=== PATIENT | male | born 1985 | race Caucasian/White ===

== ENCOUNTER → 2020-08-14 | Outpatient (CLI) | payer BC ==
[~2020-08-14] MED LIST: DOCU-109 PO; HYDR-2761 PO; IBUP-1007 PO; METH-38 PO
[2020-08-14 14:12] LABS: BASO % 0 % (0-3); EOS # 0.1 x10^3/uL (0.0-0.7); EOS % 1 % (0-3); HEMATOCRIT 44.4 % (39.0-53.0); HEMOGLOBIN 15.3 g/dL (13.0-17.5); LYMPH % 17 % (24-48); MEAN CORPUSCULAR HEMOGLOBIN 32 pg (25-35); MEAN CORPUSCULAR HGB CONC 35 g/dL (31-37); MEAN CORPUSCULAR VOLUME 93 fL (79-100); MONO # 0.6 x10^3/uL (0.0-1.1); MONO % 10 % (0-9); NEUT # 4.1 x10^3/uL (1.8-7.7); NEUT % 72 % (31-73); PLATELET COUNT 117 x10^3/uL (140-400); RED CELL DISTRIBUTION WIDTH 12.7 % (11.5-14.5); WHITE BLOOD COUNT 5.7 x10^3/uL (4.0-11.0)
[2020-08-14 14:33] LABS: ALBUMIN 4.1 g/dL (3.4-5.0); ALBUMIN/GLOBULIN RATIO 1.2 (1.0-1.7); CALCIUM 8.7 mg/dL (8.5-10.1); CREATININE 1.4 mg/dL (0.7-1.3); GFR 58.4; TOTAL BILIRUBIN 0.9 mg/dL (0.2-1.0); TOTAL PROTEIN 7.4 g/dL (6.4-8.2)
== END ==
LOC: SURGPAT 13:15
PROVIDERS: ATTEND Neurological Surgery
DX: Z01.812 Encounter for preprocedural laboratory examination (principal); Z20.822 Contact with and (suspected) exposure to COVID-19; M51.17 Intervertebral disc disorders with radiculopathy, lumbosacral region
CPT/HCPCS: 80053; 85025; 87641; U0003

== ENCOUNTER 2020-08-20 09:14 | Day surgery (SDC) | payer BC ==
[~2020-08-20] VITALS: Ht 180.3 cm; Wt 97.5 kg
--- NOTE | 2020-08-20 06:55 | PREOP HP ---
DATE OF SERVICE: 08/20/2020 HISTORY OF PRESENT ILLNESS: The patient is a pleasant 35-year-old man who is having difficulty with back pain and severe pain in his right buttock, posterior thigh and leg. He also notes a pins and needle sensation in his right foot. He has had difficulties with his lower back for about 3 or 4 years following a basketball injury and has had intermittent episodes of pain since then. Currently, he rates his pain 6/10, but it can reach 8-9/10. He has difficulty sleeping because of pain. He has missed work because of pain. The pain is constant. Sitting, standing or walking increases his pain. He must change positions frequently. He is taking gabapentin and ibuprofen. He had an epidural steroid injection on 07/28 with no relief. He has had physical therapy recently with no relief. He also has seen a chiropractor, which did not give him significant relief. CURRENT MEDICATIONS: Gabapentin, ibuprofen, nabumetone. PAST MEDICAL HISTORY: Denies previous medical history. PAST SURGICAL HISTORY: Tonsillectomy, right elbow scope, left elbow scope.. FAMILY HISTORY: Hypertension, spine problems. SOCIAL HISTORY: Employed as an investigative specialist. . Uses chewing tobacco for 10 years. Drinks alcohol 1-2 times per week. ALLERGIES: No known drug allergies. REVIEW OF SYSTEMS: A 12-point review of systems was performed and is noncontributory except that mentioned above. PHYSICAL EXAMINATION: GENERAL: Alert, pleasant, in no acute distress. HEAD: Normocephalic, atraumatic. SKIN: Warm and dry. MUSCULOSKELETAL: There is [id number]-[id number] tenderness of the lower lumbar spine with palpation. Lumbar spine range of motion is restricted. Lumbar paraspinal muscle bulk is normal. Normal range of motion of the lower extremities. EXTREMITIES: No clubbing, cyanosis or edema. NEUROLOGIC: Alert and oriented x 3. Strength is 5/5 in the bilateral lower extremities, sensory was intact to light touch in the lower extremities bilaterally, reflexes were present and symmetric in the lower extremities except for an absent right ankle jerk, straight leg raising is markedly positive on the right, crossed straight leg raising markedly positive on the left, antalgic gait. IMAGING: I reviewed a lumbar MRI scan from 08/05/2020. On that study, the principal abnormality is a large right paracentral disc extrusion at L5-S1, which extends into the right lateral recess with marked compression of the right S1 nerve root. The disc has enlarged when compared to previous MRI scan from 12/18/2019. ASSESSMENT AND PLAN: The patient has a severe right lumbar radiculopathy. He has failed to improve with epidural steroid injections as well as physical therapy. The disc is enlarged on sequential MRI scan. My feeling is that he should undergo lumbar microsurgery including a microdiskectomy at L5-S1. I spoke with him about the surgery and the risk. We also discussed the expected postoperative course. He understands. He would like to go ahead. EMI FELIX MD DR: UZAIR/siddharth JOB#: [id number] / [id number] JUANITA
[~2020-08-20 09:14] MED LIST changes: +BACITRACIN 50,000 UNIT in IV NORMAL SALINE 1000ML BAG 1,000 ML IRR ONE; +BUPIVACAINE-EPI 0.5%-1:200000 MPF 30 ML VIAL. ONE; +DEXAMETHASONE SOD PHOS 4 MG/ML VIAL ONE; -DOCU-109 PO; +GELATIN SPONGE SIZE 100. ONE; +GLYCOPYRROLATE 1 MG/5 ML VIAL. ONE; -HYDR-2761 PO; +HYDROmorphone 2 MG/ML VIAL IVP PRN; +IV RINGERS,LACTATED 1000ML 1,000 ML IV SCH; +KETOROLAC 60 MG/2 ML VIAL. ONE; +LIDOCAINE 2% PF 5 ML VIAL. ONE; -METH-38 PO; +MIDAZOLAM HCL/PF 2 MG/2 ML VIAL. ONE; +MORPHINE SULFATE 2 MG/ML VIAL. IVP PRN; +NEOSTIGMINE METHYLSULFATE 5 MG/5 ML SYRINGE. ONE; +ONDANSETRON PF 4 MG/2 ML VIAL. ONE; +PROCHLORPERAZINE 10 MG/2 ML VIAL. IVP PRN; +PROPOFOL 10 MG/ML (20ML) VIAL. IV ONE; +REMIFENTANIL 2 MG VIAL. IV ONE; +ROCURONIUM 50 MG/5 ML VIAL. ONE; +SCOPOLAMINE 1.5MG PATCH. TD ONE; +THROMBIN TOPICAL 20,000 UNIT SPRAY.SYRN KIT TP ONE; +fentaNYL PF VIAL 100 MCG/2 ML VIAL IVP PRN; +fentaNYL PF VIAL 100 MCG/2 ML VIAL ONE
[2020-08-20] MEDS ORDERED: SCOPOLAMINE 1.5MG PATCH. TD SCH (09:15)
[2020-08-20] MEDS ORDERED: PROPOFOL 100 ML IV ONE (09:15)
[2020-08-20] MEDS ORDERED: PHENYLEPHRINE 10 MG/ML VIAL. ONE (09:25)
[2020-08-20] MEDS ORDERED: diphenhydrAMINE 50 MG/ML VIAL ONE (11:41)
[2020-08-20] MEDS ORDERED: METH-38 PO (11:46)
[2020-08-20] MEDS ORDERED: HYDR-2761 PO (11:46)
[2020-08-20] MEDS ORDERED: DOCU-109 PO (11:46)
--- NOTE | 2020-08-20 11:49 | DISCH ---
DISCHARGE INSTRUCTIONS Condition on Discharge Condition on Discharge: Stable Activity After Discharge Activity Instructions for Disc: Activity as tolerated, Avoid exertion Other activity instructions: no driving for a week Bathing Instructions: Shower-keep dressing dry Lifting Instructions after Dis: No heavy lifting, No pulling or pushing, Do not lift >10 pounds Diet after Discharge Additional Diet Restrictions: resume home diet Wound Incision Care Wound/Incision Care: Ice to area for comfort Other wound/incision instructi: may remove dressing in 48 hours if dry then may shower, no soaking Contacting the after DC Call your doctor for: Concerns you may have Follow-Up Follow up with: Dr. Felix's nurse in 2 weeks [phone] EMI FELIX MD Aug 20, 2020 11:49
[2020-08-20] MEDS ORDERED: GLYCOPYRROLATE 1 MG/5 ML VIAL. ONE (12:54)
[2020-08-20] MEDS ORDERED: NEOSTIGMINE 10 MG/10 ML VIAL. ONE (12:54)
[2020-08-20] MEDS ORDERED: fentaNYL PF VIAL 100 MCG/2 ML VIAL ONE ×2 (13:07→13:38)
--- NOTE | 2020-08-20 13:35 | OP ---
DATE OF SURGERY: 08/20/2020 PREOPERATIVE DIAGNOSIS: Herniated lumbar disc at L5-S1, right, with severe right lumbar radiculopathy. POSTOPERATIVE DIAGNOSIS: Herniated lumbar disc at L5-S1, right, with severe right lumbar radiculopathy. OPERATION PERFORMED: Hemilaminotomy and microdiscectomy at L5-S1, right. SURGEON: Bar Felix M.D. PEACE OFFICER: GILLIAN Storey, who assisted with the exposure, the microdecompression, microdiscectomy as well as the closure. We also employed fluoroscopy, microscopic dissection and electrophysiologic monitoring. OPERATIVE INDICATIONS: The patient is a pleasant 35-year-old man who developed severe intractable back and right leg pain, which failed conservative management including epidural steroid injection as well as physical therapy. On imaging studies, there was a large right paracentral disc herniation at L5-S1 with marked compression of the right S1 root and I recommended lumbar microsurgery. I spoke about the operation, the risks, technique and expected postoperative course and he wished to go ahead. DESCRIPTION OF PROCEDURE: Following general endotracheal anesthesia, the patient was positioned prone on the Oumar table. Lumbar region was prepped and draped in standard fashion. ALEXANDRA hose and AV impulse boots were applied for DVT prophylaxis. The microscope was draped. Fluoroscopy was draped and brought into the field. Monitoring was established. Ancef 2 g was given less than 1 hour prior to initiation of the surgery. Using fluoroscopic guidance, a midline incision was made directly over the L5-S1 interspace. I dissected down through skin and subcutaneous tissue, reflected the paraspinal muscles, placed a [place] micro disc retractor, brought in the microscope and through the microscope, I burred down a hemilaminotomy. I trimmed away ligamentum flavum and performed a partial foraminotomy. The nerve was markedly compressed and deviated medially. I incised the ligament and began to remove large disc fragments with a micropituitary as well as using a blunt hook. As I worked, the root moved laterally to a much more normal position. I entered into the disc space and removed a small amount of disc from the disc space. The disc space was relatively empty of disc material. I explored carefully. There were no retained fragments. The root was very free. I irrigated copiously with antibiotic solution. I did use a bipolar cautery sparingly and maintained hemostasis, but hemostasis was never a significant problem whatsoever. I removed the retractor, irrigated again and I assured myself of excellent hemostasis in the muscle. I then closed the wound in layers with absorbable suture and the skin was closed with 4-0 subcuticular stitch. I felt the surgery went very well. BAR FELIX MD DR: OMID/siddharth JOB#: [id number] / [id number] JUANITA
[2020-08-20] MEDS: fentaNYL PF VIAL 100 MCG/2 ML VIAL IVP PRN ×2 (13:41→13:52)
[2020-08-20] MEDS ORDERED: HYDROcodone/APAP 5/325MG 1 TAB TABLET PO ONE ×2 (14:00)
[2020-08-20 15:00] VITALS: BP 122/67
--- NOTE | 2020-08-24 18:09 | PATHOLOGY ---
[facility] Accession Number: [id number] . 01 Material submitted: . vertebral column - LUMBAR DISC AND DECOMPRESSION . 01 Clinical history: . LUMBAR HERNIATED DISC AND RADICULOPATHY L5-S1 . 02 Diagnosis: Segments of fibrocartilaginous, adipose, and skeletal muscle tissue and bone, lumbar disc and decompression: - Degenerative changes of fibrocartilaginous tissue. ([facility] 08/24/2020) OLT 08/24/2020 1721 Local . 02 Comment: There is no evidence of an acute inflammatory process or malignancy. ([facility] 08/24/2020) . 02 Electronically signed: . Roman Velázquez MD, Pathologist NPI- [id number] . 01 Gross description: . Received in formalin labeled "Juancho Montalvo, lumbar disc and decompression" is a 3.0 x 2.6 x 1.0 cm aggregate of guzman-white and guzman-brown rubbery and gritty tissue and bone. [employer] tissue is submitted in cassette A1 following decalcification. ([facility] [place] 08/22/2020) [facility] 08/24/2020 1617 Local . 02 Pathologist provided ICD-10: M51.36 . 02 CPT . 368032, [id number] Specimen Comment: A courtesy copy of this report has been sent to [phone] Specimen Comment: Report sent to / Performed at: 01 [facility] [address], [place] [id number] MD Alonso Duarte MD Phone: [phone] Performed at: 02 [facility] [id number] MD Roman Velázquez MD Phone: [phone]
== END 2020-08-20 15:20 | disposition home or self-care (01) ==
LOC: SURG 09:14
PROVIDERS: ATTEND Neurological Surgery
DX: M51.16 Intervertebral disc disorders with radiculopathy, lumbar region (principal); K21.9 Gastro-esophageal reflux disease without esophagitis; Z79.899 Other long term (current) drug therapy; Z98.890 Other specified postprocedural states
CPT/HCPCS: 63030; 97161; 97530; J0690; J1100; J1200; J1885; J2250; J2370; J2405; J2704; J2710; J3010; J3490; J7030; 76000